=== PATIENT | female | born 1975 | race Caucasian/White ===

== ENCOUNTER 2025-02-22 21:47 | Emergency (ER) | payer MEDICAID ==
[2025-02-22] MEDS ORDERED: Sodium Chloride 0.9% 10 ML Syringe FLUSH PRN (22:42)
[2025-02-22] MEDS: Ketorolac 15 MG/ML SDV IVPUSH ONE (22:56)
[2025-02-22] MEDS: Ondansetron 4 MG/2 ML SDV IVPUSH ONE (22:56)
[2025-02-22 23:02] LABS: BASOPHILS ABSOLUTE AUTO 0.1 x10-3/uL (0.0-0.1); BASOPHILS PERCENT AUTO 1.1 % (0.2-1.5); EOSINOPHILS ABSOLUTE AUTO 0.2 x10-3/uL (0.0-0.8); EOSINOPHILS PERCENT AUTO 2.4 % (0.6-8.1); LYMPHOCYTES ABSOLUTE AUTO 1.5 x10-3/uL (1.0-4.4); LYMPHOCYTES PERCENT AUTO 17.0 % (18.4-52.1); MEAN PLATELET VOLUME 7.7 fL (7.1-12.4); MONOCYTES ABSOLUTE AUTO 0.4 x10-3/uL (0.3-1.0); MONOCYTES PERCENT AUTO 4.7 % (4.4-15.7); NEUTROPHILS ABSOLUTE AUTO 6.5 x10-3/uL (1.5-6.3); NEUTROPHILS PERCENT AUTO 74.8 % (30.8-76.2); PLATELET COUNT,PLT 349 x10(3)uL (151-488); RED BLOOD CELL COUNT 4.85 x10(6)uL (3.60-5.20); RED CELL DISTRIBUTION WIDTH 14.0 % (12.3-16.5); WHITE BLOOD CELL COUNT,WBC 8.7 x10-3/uL (3.0-10.3)
[2025-02-22 23:07] LABS: BLOOD UREA NITROGEN,BUN 6 mg/dL (7-18); CARBON DIOXIDE,CO2 28 mmol/L (21-32); CHLORIDE,CL 106 mmol/L (100-110); CREATININE 0.9 mg/dL (0.55-1.02); EST CRCL DRUG DOSING (CG) 57.06 mL/min; ESTIMATED GFR 78 mL/min (>60); GLUCOSE RANDOM 116 mg/dL (80-116); POTASSIUM,K 3.9 mmol/L (3.5-5.3); SODIUM,NA 143 mmol/L (135-145)
[2025-02-22 23:13] LABS: A/G RATIO 1.1; ALANINE AMINOTRANSFERASE,ALT 24 U/L (12-36); ASPARTATE AMNIOTRANSFERASE,AST 19 IU/L (5-25); BILIRUBIN TOTAL 0.6 mg/dL (0.1-1.3); PROTEIN TOTAL,TP 7.4 g/dL (6.0-8.0)
[2025-02-22 23:16] LABS: LACTIC ACID 0.5 mmol/L (0.4-2.0)
[2025-02-22 23:48] LABS: GLUCOSE,URINE NORMAL (NORMAL); OCCULT BLOOD,URINE NEGATIVE (NEGATIVE)
[2025-02-22 23:51] LABS: APPEARANCE,URINE CLEAR (CLEAR)
== END 2025-02-23 00:06 | disposition home or self-care (01) ==
LOC: FB.ED 21:47
DX: K52.9 Noninfective gastroenteritis and colitis, unspecified (principal); Z88.8 Allergy status to other drugs, medicaments and biological substances; Z79.899 Other long term (current) drug therapy
CPT/HCPCS: 74176; 80053; 81003; 83605; 83690; 85025; 86140; 96361; 96374; 96375; 99284; J1885; J2405; J7030; 36415

== ENCOUNTER 2025-03-22 04:30 | Emergency (ER) | payer MEDICAID, OTHER ==
[2025-03-22] MEDS: Ketorolac 30 MG/ML SDV IM ONE (05:11)
== END 2025-03-22 05:32 | disposition home or self-care (01) ==
LOC: FB.ED 04:30
DX: M75.22 Bicipital tendinitis, left shoulder (principal); Z88.8 Allergy status to other drugs, medicaments and biological substances; Z79.899 Other long term (current) drug therapy
CPT/HCPCS: 96372; 99283; J1885